=== PATIENT | female | born 1965 | race African-American/Black ===

== ENCOUNTER 2019-07-21 09:45 | Emergency (ER) | payer SELFPAY ==
[~2019-07-21] VITALS: Ht 174 cm; Wt 68.0 kg
[2019-07-21] MEDS ORDERED: SIME125T7 PO (10:10)
[2019-07-21] MEDS ORDERED: GABA-529 PO (10:10)
[2019-07-21] MEDS ORDERED: WARF1TAB46 PO (10:10)
[2019-07-21] MEDS ORDERED: DICYCLOMINE HCL 10MG/ML 2ML AMP IM ONE (11:15)
[2019-07-21] MEDS ORDERED: METOCLOPRAMIDE HCL 10MG/2ML VIAL IV ONE (11:15)
[2019-07-21 11:43] LABS: BASOPHILS % 1.2 % (0.0-2.0); EOSINOPHILS % 1.7 % (0.0-5.0); HEMATOCRIT. 30.4 % (36.0-48.0); HEMOGLOBIN. 10.3 g/dL (12.0-16.0); LYMPHOCYTES % 42.8 % (20.0-50.0); MEAN CORPUSCULAR HEMOGLOBIN 30.7 pg (28.0-32.0); MEAN PLATELET VOLUME 7.4 fl (7.4-10.4); MONOCYTES % 9.4 % (2.0-8.0); NEUTROPHILS % 44.9 % (40.0-76.0); PLATELET 472 x1000/uL (130-400); RED BLOOD CELL COUNT 3.34 mill/uL (4.2-5.4); RED CELL DISTRIBUTION WIDTH 17.7 % (11.6-14.6)
[2019-07-21 11:44] LABS: CHLORIDE 107 mEq/L (98-107)
[2019-07-21] MEDS ORDERED: ACETAMINOPHEN 325MG TABLET PO ONE (13:00)
[2019-07-21] MEDS ORDERED: IOHEXOL-300 100 ML BOTTLE ONE ×2 (13:52→14:47)
[2019-07-21 14:13] VITALS: BP 123/76
[2019-07-21 17:10] LABS: CLARITY URINE CLEAR (CLEAR); COLOR URINE YELLOW (YELLOW); KETONES URINE NEGATIVE (NEGATIVE); LEUKOCYTE ESTERASE URINE TRACE (NEGATIVE); NITRITE URINE NEGATIVE (NEGATIVE); OCCULT BLOOD URINE NEGATIVE (NEGATIVE); PROTEIN URINE NEGATIVE (NEGATIVE); SPECIFIC GRAVITY URINE 1.035 (1.005-1.030); UROBILINOGEN URINE 0.2 E.U./dL (0.2-1.0)
== END 2019-07-21 14:34 | disposition home or self-care (01) ==
LOC: ER 10:05
DX: K57.32 Diverticulitis of large intestine without perforation or abscess without bleeding (principal); F17.210 Nicotine dependence, cigarettes, uncomplicated; Z71.6 Tobacco abuse counseling
CPT/HCPCS: 36415; 71045; 74177; 80053; 81003; 83690; 83880; 84484; 85025; 93005; 96372; 96374; 99284; 99406; J0500; J2765; Q9967

== ENCOUNTER 2019-08-04 12:26 | Emergency (ER) | payer SELFPAY ==
[~2019-08-04] VITALS: Ht 172.7 cm; Wt 62.0 kg
[~2019-08-04 12:26] MED LIST: GABA-529 PO; SIME125T7 PO; WARF1TAB46 PO
[2019-08-04 15:37] VITALS: BP 109/84
== END 2019-08-04 20:01 | disposition left against medical advice (07) ==
LOC: ER 12:26
DX: Z53.21 Procedure and treatment not carried out due to patient leaving prior to being seen by health care provider (principal)

== ENCOUNTER 2019-08-11 16:23 | Emergency (ER) | payer SELFPAY ==
[~2019-08-11] VITALS: Ht 172.7 cm; Wt 63.0 kg
[2019-08-11] MEDS ORDERED: SODIUM CHLORIDE 0.9% 1,000 ML IV ONE (22:44)
[2019-08-11] MEDS ORDERED: ONDANSETRON HCL 4MG/2ML INJ IV STA (22:44)
[2019-08-11] MEDS ORDERED: KETOROLAC 30MG/ML VIAL IV STA (22:44)
[2019-08-11 23:50] LABS: CLARITY URINE CLOUDY (CLEAR); COLOR URINE DARK YELLOW (YELLOW); KETONES URINE TRACE (NEGATIVE); LEUKOCYTE ESTERASE URINE TRACE (NEGATIVE); NITRITE URINE NEGATIVE (NEGATIVE); OCCULT BLOOD URINE NEGATIVE (NEGATIVE); PH URINE 5.5 (4.5-8.0); PROTEIN URINE 1+ (NEGATIVE); SPECIFIC GRAVITY URINE 1.038 (1.005-1.030)
[2019-08-12 00:08] LABS: BASOPHILS % 1.1 % (0.0-2.0); HEMATOCRIT. 37.3 % (36.0-48.0); HEMOGLOBIN. 12.1 g/dL (12.0-16.0); LYMPHOCYTES % 33.3 % (20.0-50.0); MEAN CORPUSCULAR HEMOGLOBIN 29.1 pg (28.0-32.0); MEAN CORPUSCULAR VOLUME 89.6 fL (81.0-99.0); MEAN PLATELET VOLUME 8.8 fl (7.4-10.4); MONOCYTES % 9.3 % (2.0-8.0); NEUTROPHILS % 53.3 % (40.0-76.0); PLATELET 285 x1000/uL (130-400); RED BLOOD CELL COUNT 4.17 mill/uL (4.2-5.4)
[2019-08-12 00:09] LABS: CHLORIDE 108 mEq/L (98-107)
[2019-08-12 00:14] LABS: PROTHROMBIN TIME 10.2 sec (9.6-11.0)
[2019-08-12] MEDS ORDERED: HYDROCODONE/ACETAMINOPHEN 5/325MG TABLET PO ONE (01:45)
[2019-08-12 02:33] VITALS: BP 144/79
== END 2019-08-12 02:36 | disposition home or self-care (01) ==
LOC: ER 16:44
DX: R10.30 Lower abdominal pain, unspecified (principal)
CPT/HCPCS: 36415; 80053; 81003; 83690; 85025; 85610; 96374; 96375; 99283; J1885; J2405; J7030; Z7610